=== PATIENT | female | born 1970 | race American Indian/Alaskan Native ===

== ENCOUNTER 2016-09-05 16:05 | Emergency (ER) | payer MEDICAID ==
[2016-09-05 17:09] VITALS: BP 139/73
[2016-09-05 18:14] LABS: Basophils % (Auto) 0.5 % (0.0-1.8); Eosinophils % (Auto) 1.2 % (0.0-4.3); Hematocrit 30.1 % (30.3-42.9); Hemoglobin 10.1 gm/dl (10.1-14.3); Mean Corpuscular HGB Conc 33 % (30-34); Mean Corpuscular Hemoglobin 28 pg (28-32); Mean Corpuscular Volume 84 fl (79-97); Platelet Count 219 K/mm3 (140-440); Red Blood Count 3.59 M/mm3 (3.65-5.03); White Blood Count 8.2 K/mm3 (4.5-11.0)
[2016-09-05 18:25] LABS: Anion Gap 15 mmol/L; BUN/Creatinine Ratio 15.71; Blood Urea Nitrogen 22 mg/dL (7-17); Calcium 8.4 mg/dL (8.4-10.2); Carbon Dioxide 24 mmol/L (22-30); Chloride 98.9 mmol/L (98-107); Glucose 383 mg/dL (65-100); Potassium 4.7 mmol/L (3.6-5.0); Sodium 133 mmol/L (137-145)
--- NOTE | 2016-09-06 01:36 | Emergency Department Report ---
ED Chest Pain HPI - General Stated Complaint: CHEST PAIN/FOOT SWOLLEN Time Seen by Provider: 09/06/16 01:28 Source: patient Mode of arrival: Ambulatory Limitations: No Limitations - History of Present Illness Initial Comments: This is a pleasant 46-year-old female who reports increased pedal edema over the last 3 weeks. She was report occasional shortness of breath occasional chest pains as well. She denies any significant pains tonight though. No fevers reported. States that she was told by another doctor that she has CHF. She has a follow-up appointment with her doctor in 1 month. She was initially on Lasix as well as lisinopril and metoprolol. She has run out of all her medications as of one week ago. She is requesting refill on these medications. This is her primary reason for presenting today. She reports normal urine output in general. She does indicate that she does have some mild disease and has been asked by her doctor to see a kidney specialist in the past. She has not done this. She is otherwise feeling at her baseline. - Related Data Home Medications Medication Instructions Recorded Confirmed Last Taken Cyclobenzaprine HCl [FLEXERIL] 10 mg PO QHS 04/30/13 06/19/15 06/18/15 10mg Lisinopril [Zestril] 2.5 mg PO BID 04/30/13 06/19/15 06/18/15 2.5mg Insulin Detemir [Levemir Flextouch] 45 units SQ BID 06/19/15 06/19/15 06/18/15 45units Previous Rx's Medication Instructions Recorded Last Taken Type Furosemide [Lasix] 20 mg PO QDAY #30 tablet 09/06/16 Unknown Rx Lisinopril [Zestril TAB] 5 mg PO QDAY #30 tablet 09/06/16 Unknown Rx Metoprolol [Lopressor TAB] 25 mg PO BID #60 tablet 09/06/16 Unknown Rx Potassium Chloride [K-Dur] 10 meq PO QDAY #30 tablet 09/06/16 Unknown Rx Allergies Allergy/AdvReac Type Severity Reaction Status Date / Time Penicillins Allergy Unknown Verified 06/19/15 08:39 tramadol Allergy Vomiting Verified 05/24/13 09:12 ALVERTO score - Alverto Score Age > 65: (0) No Aspirin use within the Past 7 Days: (0) No 3 or more CAD Risk Factors: (1) Yes 2 or more Angina events in past 24 hrs: (0) No Known CAD with more than 50% Stenosis: (0) No Elevated Cardiac Markers: (0) No ST Deviation Greater than 0.5mm: (0) No ALVERTO Score: 1 ED Review of Systems ROS: Stated complaint: CHEST PAIN/FOOT SWOLLEN Other details as noted in HPI Comment: All other systems reviewed and negative Constitutional: denies: chills, fever Eyes: denies: eye pain, eye discharge, vision change ENT: denies: ear pain, throat pain Respiratory: shortness of breath. denies: cough, wheezing Cardiovascular: chest pain. denies: palpitations Endocrine: no symptoms reported Gastrointestinal: denies: abdominal pain, nausea, diarrhea Genitourinary: denies: urgency, dysuria, discharge Musculoskeletal: other (pedal edema.). denies: back pain, joint swelling, arthralgia Skin: denies: rash, lesions Neurological: denies: headache, weakness, paresthesias Psychiatric: denies: anxiety, depression Hematological/Lymphatic: denies: easy bleeding, easy bruising ED Past Medical Hx - Past Medical History Previous Medical History?: Yes Hx Hypertension: Yes (2012) Hx Congestive Heart Failure: No Hx Diabetes: Yes Hx Deep Vein Thrombosis: No Hx Asthma: No Hx COPD: No Additional medical history: Chronic back pain, "heart beats fast, that is why I take atenolol" - Surgical History Past Surgical History?: Yes Hx Pacemaker: No Hx Internal Defibrillator: No Hx Cholecystectomy: Yes Additional Surgical History: Back surgery, Tube ligation, toe surgery (May 2013) - Social History Smoking Status: Never Smoker Substance Use Type: None - Medications Home Medications: Home Medications Medication Instructions Recorded Confirmed Last Taken Type Cyclobenzaprine HCl [FLEXERIL] 10 mg PO QHS 04/30/13 06/19/15 06/18/15 History 10mg Lisinopril [Zestril] 2.5 mg PO BID 04/30/13 06/19/15 06/18/15 History 2.5mg Insulin Detemir [Levemir Flextouch] 45 units SQ BID 06/19/15 06/19/15 06/18/15 History 45units Furosemide [Lasix] 20 mg PO QDAY #30 tablet 04/07/17 Unknown Rx Lisinopril [Zestril TAB] 5 mg PO QDAY #30 tablet 09/06/16 Unknown Rx Metoprolol [Lopressor TAB] 25 mg PO BID #60 tablet 09/06/16 Unknown Rx Potassium Chloride [K-Dur] 10 meq PO QDAY #30 tablet 09/06/16 Unknown Rx ED Physical Exam - General Limitations: No Limitations General appearance: alert, in no apparent distress - Head Head exam: Present: atraumatic, normocephalic - Eye Eye exam: Present: normal appearance, EOMI. Absent: scleral icterus - ENT ENT exam: Present: normal exam, normal orophraynx, mucous membranes moist - Neck Neck exam: Present: normal inspection, full ROM. Absent: meningismus, lymphadenopathy - Respiratory Respiratory exam: Present: normal lung sounds bilaterally. Absent: respiratory distress, wheezes, rales - Cardiovascular Cardiovascular Exam: Present: regular rate, normal rhythm. Absent: systolic murmur, diastolic murmur, rubs, gallop - GI/Abdominal GI/Abdominal exam: Present: soft, normal bowel sounds. Absent: distended, tenderness - Extremities Exam Extremities exam: Present: normal inspection, other (2+ pedal edema to the midcalf region bilaterally. Equal distal pedal pulses are noted bilaterally.) - Back Exam Back exam: Present: normal inspection. Absent: tenderness, CVA tenderness (R), CVA tenderness (L) - Neurological Exam Neurological exam: Present: alert, oriented X3 - Psychiatric Psychiatric exam: Present: normal affect, normal mood - Skin Skin exam: Present: warm, dry, intact, normal color. Absent: rash ED Course Vital Signs 09/05/16 17:04 Temperature 98.7 F Pulse Rate 88 Respiratory 20 Rate Blood Pressure 139/73 O2 Sat by Pulse 100 Oximetry - Reevaluation(s) Reevaluation #1: 09/06/16 01:52 Patient is very comfortable appearing here. Vital signs are noted. I feel that she will do very well with Lasix. Her creatinine is noted to be somewhat in elevated. I did caution the patient that this could potentially be a long- term challenge. I did try to emphasize how important it is for her to follow up with the primary doctor for continued care as her management could become challenging if her symptoms persist or worsen. For now though I suspect she'll do quite well with Lasix. She's been placed in metoprolol to help maximize fill this will be beneficial for her blood pressure as well. She was on this previously as well. She was given prescriptions for all her medications here. ECG performed here demonstrates sinus rhythm without acute process. I feel she is safe for home. Patient very comfortable here in agreeable with plan. nb we did speak as well regarding her high sugars. She indicates that she has been noncompliant on her ADA diet. She states that her last hemoglobin A1c was 5.8. I did encourage her to just watch her sugars closely and use her Levemir appropriately. She agrees to do this. 09/06/16 01:55 Reevaluation #2: 09/06/16 01:54 ECG interpreted by me with sinus rhythm at 86/m with normal NM and QRS. Some nonspecific ST-T changes noted as well. Left atrial enlargement is noted otherwise unremarkable. ED Medical Decision Making - Lab Data Result diagrams: 09/05/16 17:55 09/05/16 17:55 Critical care attestation.: If time is entered above; I have spent that time in minutes in the direct care of this critically ill patient, excluding procedure time. ED Disposition Clinical Impression: Pedal edema, Renal insufficiency Chest pain Qualifiers: Chest pain type: precordial chest pain Qualified Code(s): R07.2 - Precordial pain Hyperglycemia due to type 2 diabetes mellitus Qualifiers: Diabetes mellitus oil heaterman insulin use: with oil heaterman use Qualified Code(s): E11.65 - Type 2 diabetes mellitus with hyperglycemia; Z79.4 - prison (current ) use of insulin Disposition: DISCHARGED TO HOME OR SELFCARE Is pt being admited?: No Does the pt Need Aspirin: No Condition: Stable Instructions: Leg Edema (ED), Diabetes Mellitus Type 2 in Adults (ED) Additional Instructions: Follow with you doctor as scheduled. Watch your sugars closely. Following a diabetic diet. Prescriptions: Furosemide [Lasix] 20 mg PO QDAY #30 tablet Lisinopril [Zestril TAB] 5 mg PO QDAY #30 tablet Metoprolol [Lopressor TAB] 25 mg PO BID #60 tablet Potassium Chloride [K-Dur] 10 meq PO QDAY #30 tablet Referrals: PRIMARY CARE, [Primary Care Provider] - 3-5 Days Time of Disposition: 01:43
== END 2016-09-06 02:09 | disposition home or self-care (01) ==
LOC: ED 16:05
DX: E11.65 Type 2 diabetes mellitus with hyperglycemia (principal); R07.2 Precordial pain; R60.0 Localized edema; N28.9 Disorder of kidney and ureter, unspecified; I10 Essential (primary) hypertension
CPT/HCPCS: 36415; 80048; 84484; 85025; 93005; 93010; 99284

== ENCOUNTER 2016-10-30 12:45 | Outpatient (CLI) | payer MEDICAID ==
[2016-10-30 13:14] LABS: Basophils % (Auto) 0.3 % (0.0-1.8); Eosinophils % (Auto) 1.1 % (0.0-4.3); Hematocrit 28.8 % (30.3-42.9); Hemoglobin 9.6 gm/dl (10.1-14.3); Mean Corpuscular HGB Conc 33 % (30-34); Mean Corpuscular Hemoglobin 29 pg (28-32); Mean Corpuscular Volume 87 fl (79-97); Platelet Count 251 K/mm3 (140-440); Red Blood Count 3.32 M/mm3 (3.65-5.03); Red Cell Distribution Width 12.6 % (13.2-15.2); White Blood Count 9.1 K/mm3 (4.5-11.0)
[2016-10-30 13:26] LABS: Albumin 3.6 g/dL (3.9-5); BUN/Creatinine Ratio 19.44; Calcium 9.2 mg/dL (8.4-10.2); Chloride 100.7 mmol/L (98-107); Potassium 5.7 mmol/L (3.6-5.0)
== END 2016-10-30 12:46 | disposition home or self-care (01) ==
LOC: LAB 12:45
PROVIDERS: ATTEND Internal Medicine Nephrology
DX: E11.8 Type 2 diabetes mellitus with unspecified complications (principal); I10 Essential (primary) hypertension; R80.9 Proteinuria, unspecified; R94.4 Abnormal results of kidney function studies; R31.9 Hematuria, unspecified; N39.0 Urinary tract infection, site not specified; D64.9 Anemia, unspecified
CPT/HCPCS: 36415; 80048; 82040; 82570; 82607; 82747; 83550; 83970; 84100; 84156; 85025

== ENCOUNTER 2017-08-11 10:35 | Emergency (ER) | payer MEDICAID, OTHER ==
[2017-08-11 10:42] VITALS: BP 166/66
[2017-08-11] MEDS ORDERED: TYLENOL PO ONE (12:29)
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
== END 2017-08-11 13:01 | disposition home or self-care (01) ==
LOC: ED 10:35
DX: M25.511 Pain in right shoulder (principal); M79.1 Myalgia; I10 Essential (primary) hypertension; E11.9 Type 2 diabetes mellitus without complications; V49.59XA Passenger injured in collision with other motor vehicles in traffic accident, initial encounter; Y93.89 Activity, other specified; Y92.89 Other specified places as the place of occurrence of the external cause; Y99.8 Other external cause status
CPT/HCPCS: 99282

== ENCOUNTER 2018-10-23 15:40 | Emergency (ER) | payer SELFPAY ==
--- NOTE | 2018-10-23 16:02 | Emergency Department Report ---
Blank Doc - Documentation Documentation: states she got a laceration to toe a week ago unsure how she got it does not know when she got a cut on the left big toe tetanus immunization in 2018 PMHx DM, HTN, CKD, CAD non smoker non drinker no drug use
--- NOTE | 2018-10-23 17:02 | XRay Report ---
PROCEDURE: XR FOOT 3+V LT TECHNIQUE: Left foot radiographs, 3 views HISTORY: laceration under left big toe, PMHx of DM . Pt had surgery x 5yrs to remove bone in 1st dig it of left foot COMPARISONS: None FINDINGS: Postoperative deformity hallux phalanges. No radiographically visible radiopaque foreign body. There is no radiographic evidence of definite acute fracture or dislocation. No evidence of osseous lesion. Joint spaces are maintained. There is no evidence of significant degenerative arthrosis. IMPRESSION: No definite radiographically visible acute skeletal pathology or radiopaque foreign body This document is electronically signed by Ronald Blancas MD., Oct 23 2018 05:00:51 PM ET
[2018-10-23] MEDS ORDERED: TYLENOL PO ONE (17:24)
[2018-10-23] MEDS ORDERED: TYLENOL ONE ×2 (17:26→17:39)
--- NOTE | 2018-10-23 17:27 | Emergency Department Report ---
- General Chief Complaint: Wound/Laceration Stated Complaint: FEET INFECTED Time Seen by Provider: 10/23/18 16:00 Source: patient Mode of arrival: Ambulatory Limitations: No Limitations - History of Present Illness Initial Comments: 48-year-old female comes in for cut on left foot. She thinks that it may be infected. Patient was at the cut happened one week ago. She reports pain as a 6 out of 10. She admits to uncontrolled diabetes. She reports she is out of her Lasix out of her lisinopril and out of her diabetic medication. Patient reports she does have refills at [facility]. Patient denies any fever or chills no nausea no vomiting no discharge from toe. Extremity Location: Left: Foot (great toe) - Related Data Home Medications Medication Instructions Recorded Confirmed Last Taken Cyclobenzaprine HCl [FLEXERIL] 10 mg PO QHS 04/30/13 06/19/15 06/18/15 10mg Lisinopril [Zestril] 2.5 mg PO BID 04/30/13 06/19/15 06/18/15 2.5mg Insulin Detemir [Levemir Flextouch] 45 units SQ BID 06/19/15 06/19/15 06/18/15 45units Previous Rx's Medication Instructions Recorded Last Taken Type Furosemide [Lasix] 20 mg PO QDAY #30 tablet 09/06/16 Unknown Rx Lisinopril [Zestril TAB] 5 mg PO QDAY #30 tablet 09/06/16 Unknown Rx Metoprolol [Lopressor TAB] 25 mg PO BID #60 tablet 09/06/16 Unknown Rx Potassium Chloride [K-Dur] 10 meq PO QDAY #30 tablet 09/06/16 Unknown Rx Acetaminophen [Tylenol] 1,000 mg PO Q6HR #20 tablet 08/11/17 Unknown Rx Cyclobenzaprine HCl [Flexeril 5 MG 5 mg PO Q8HR PRN #12 tab 08/11/17 Unknown Rx TAB] Fluconazole [Diflucan TAB] 150 mg PO ONCE #1 tablet 05/17/18 Unknown Rx Sulfamethoxazole/Trimethoprim 1 each PO BID #14 tablet 05/17/18 Unknown Rx [Bactrim DS TAB] Clindamycin [Clindamycin CAP] 300 mg PO Q8H #21 cap 10/23/18 Unknown Rx Allergies Allergy/AdvReac Type Severity Reaction Status Date / Time Penicillins Allergy Unknown Verified 10/23/18 15:47 tramadol Allergy Vomiting Verified 10/23/18 15:47 ED Review of Systems ROS: Stated complaint: FEET INFECTED Other details as noted in HPI Comment: All other systems reviewed and negative Constitutional: denies: chills, fever Skin: other (left toe cut) ED Past Medical Hx - Past Medical History Hx Hypertension: Yes (2012) Hx Congestive Heart Failure: No Hx Diabetes: Yes Hx Deep Vein Thrombosis: No Hx Asthma: No Hx COPD: No Additional medical history: Chronic back pain, "heart beats fast, that is why I take atenolol" - Surgical History Hx Pacemaker: No Hx Internal Defibrillator: No Hx Cholecystectomy: Yes Additional Surgical History: Back surgery, Tube ligation, toe surgery (May 2013) - Social History Smoking Status: Never Smoker Substance Use Type: None - Medications Home Medications: Home Medications Medication Instructions Recorded Confirmed Last Taken Type Cyclobenzaprine HCl [FLEXERIL] 10 mg PO QHS 04/30/13 06/19/15 06/18/15 History 10mg Lisinopril [Zestril] 2.5 mg PO BID 04/30/13 06/19/15 06/18/15 History 2.5mg Insulin Detemir [Levemir Flextouch] 45 units SQ BID 06/19/15 06/19/15 06/18/15 History 45units Furosemide [Lasix] 20 mg PO QDAY #30 tablet 09/06/16 Unknown Rx Lisinopril [Zestril TAB] 5 mg PO QDAY #30 tablet 09/06/16 Unknown Rx Metoprolol [Lopressor TAB] 25 mg PO BID #60 tablet 09/06/16 Unknown Rx Potassium Chloride [K-Dur] 10 meq PO QDAY #30 tablet 09/06/16 Unknown Rx Acetaminophen [Tylenol] 1,000 mg PO Q6HR #20 tablet 08/11/17 Unknown Rx Cyclobenzaprine HCl [Flexeril 5 MG 5 mg PO Q8HR PRN #12 tab 08/11/17 Unknown Rx TAB] Fluconazole [Diflucan TAB] 150 mg PO ONCE #1 tablet 05/17/18 Unknown Rx Sulfamethoxazole/Trimethoprim 1 each PO BID #14 tablet 05/17/18 Unknown Rx [Bactrim DS TAB] Clindamycin [Clindamycin CAP] 300 mg PO Q8H #21 cap 10/23/18 Unknown Rx ED Physical Exam - General Limitations: No Limitations General appearance: alert, in no apparent distress - Head Head exam: Present: atraumatic, normocephalic - Eye Eye exam: Present: normal appearance - ENT ENT exam: Present: mucous membranes moist - Neck Neck exam: Present: normal inspection - Respiratory Respiratory exam: Present: normal lung sounds bilaterally. Absent: respiratory distress - Cardiovascular Cardiovascular Exam: Present: regular rate, normal rhythm. Absent: systolic murmur, diastolic murmur, rubs, gallop - Extremities Exam Extremities exam: Present: normal inspection, pedal edema - Back Exam Back exam: Present: normal inspection - Neurological Exam Neurological exam: Present: alert, oriented X3 - Psychiatric Psychiatric exam: Present: normal affect, normal mood - Skin Skin exam: Present: other (left great toe plantar laceration) ED Course Vital Signs 10/23/18 16:00 Temperature 101 F H Pulse Rate 101 H Respiratory 100 H Rate Blood Pressure 187/82 [Left] ED Medical Decision Making - Radiology Data Radiology results: report reviewed Ordering Physician: DENISHA CORRALES Date of Service: 10/23/18 Procedure(s): XR foot 3+V LT Accession Number(s): [id number] cc: DENISHA CORRALES Fluoro Time In Minutes: PROCEDURE: XR FOOT 3+V LT TECHNIQUE: Left foot radiographs, 3 views HISTORY: laceration under left big toe, PMHx of DM . Pt had surgery x 5yrs to remove bone in 1st digit of left foot COMPARISONS: None FINDINGS: Postoperative deformity hallux phalanges. No radiographically visible radiopaque foreign body. There is no radiographic evidence of definite acute fracture or dislocation. No evidence of osseous lesion. Joint spaces are maintained. There is no evidence of significant degenerative arthrosis. IMPRESSION: No definite radiographically visible acute skeletal pathology or radiopaque foreign body This document is electronically signed by Ronald Wilson MD., Oct 23 2018 05:00:51 PM ET Transcribed By: LETY Dictated By: RONALD WILSON MD Electronically Authenticated By: RONALD WILSON MD Signed Date/Time: 10/23/18 170 DD/ 24 TD/TT: 10/23/18 1626 - Medical Decision Making 48-year-old female with a history of diabetes comes in for concern for infected left great toe. X-ray ordered completed shows no acute abnormalities. I will place patient on Keflex patient she can cause [facility] and have her medications refilled at the nearby [facility] as she reports she has refills at [facility] and she is from [facility] Critical care attestation.: If time is entered above; I have spent that time in minutes in the direct care of this critically ill patient, excluding procedure time. ED Disposition Clinical Impression: Laceration of toe of left foot Qualifiers: Encounter type: initial encounter Toe: great toe Damage to nail status: without damage Foreign body presence: without foreign body Qualified Code(s): S91.112A - Laceration without foreign body of left great toe without damage to nail, i nitial encounter Disposition: TO HOME OR SELFCARE Is pt being admited?: No Does the pt Need Aspirin: No Condition: Stable Instructions: Acute Wound Care (ED) Additional Instructions: Complete antibiotics as prescribed. Call [facility] to get refills on your chronic medications. Follow up with her primary care provider if his symptoms persist or gets worse. You can take Tylenol and/or Motrin for pain control. Prescriptions: Clindamycin [Clindamycin CAP] 300 mg PO Q8H #21 cap Referrals: ANGELICA GANDHI MD [Primary Care Provider] - 3-5 Days
[2018-10-23 17:36] VITALS: BP 199/89
== END 2018-10-23 17:46 | disposition home or self-care (01) ==
LOC: ED 15:40
DX: S91.112A Laceration without foreign body of left great toe without damage to nail, initial encounter (principal); I10 Essential (primary) hypertension; E11.9 Type 2 diabetes mellitus without complications; G89.29 Other chronic pain; Z90.49 Acquired absence of other specified parts of digestive tract; Z79.899 Other long term (current) drug therapy; Z88.6 Allergy status to analgesic agent; Z88.0 Allergy status to penicillin; W45.8XXA Other foreign body or object entering through skin, initial encounter; Y93.89 Activity, other specified; Y92.89 Other specified places as the place of occurrence of the external cause; Y99.8 Other external cause status
CPT/HCPCS: 99283

== ENCOUNTER 2020-10-24 10:13 | Outpatient (CLI) | payer MEDICARE ==
--- NOTE | 2020-10-24 14:33 | Mammography Report ---
DIGITAL SCREENING MAMMOGRAM WITH CAD, 10/24/2020 CLINICAL INFORMATION / INDICATION: Routine screening mammography. SCREENING MAMMO TECHNIQUE: Digital bilateral 2D mammography was obtained in the craniocaudal and mediolateral obliqu e projections. This examination was interpreted with the benefit of Computer-Aided Detection analysis . COMPARISON: 08/12/13. FINDINGS: Breast Density: There are scattered areas of fibroglandular density. No dominant mass, suspicious calcifications, or architectural distortion in either breast. IMPRESSION: No mammographic evidence of malignancy. Follow up recommendation: Routine yearly BI-RADS Category 1: Negative. A "normal" or negative report should not discourage follow up or biopsy of a clinically significant f inding. A written summary of these findings will be mailed to the patient. The patient will be entered into a mammography reporting system which will generate a reminder letter for the patient's next appointmen t at the appropriate interval. The [employer] recommends yearly mammograms starting at age 40 and continuing as l rafaela as a woman is in good health. Breast MRI is recommended for women with an approximate 20-25% or greater lifetime risk of breast cancer, including women with a strong family history of breast or ova jenn cancer or who have been treated for Hodgkin's disease. Signer Name: Eladio Madrigal MD Signed: 10/24/2020 2:28 PM Workstation Name: [id number]
== END 2020-10-24 10:14 | disposition home or self-care (01) ==
LOC: SPVWC 10:13
PROVIDERS: ATTEND Internal Medicine Nephrology
DX: Z12.31 Encounter for screening mammogram for malignant neoplasm of breast (principal); N64.89 Other specified disorders of breast
CPT/HCPCS: 77067